=== PATIENT | female | born 1945 | race Caucasian/White ===

== ENCOUNTER 2018-07-07 20:38 | Emergency (ER) | payer OTHER ==
--- NOTE | 2018-07-07 21:08 | PDOC ---
History of Present Illness - General History Source: Patient Exam Limitations: No Limitations - History of Present Illness Initial Comments: 07/07/18 21:35 The patient is a 73 year old female, with a significant past medical history of high cholesterol and HTN who presents to the emergency department with R upper lip laceration. The patient notes she was walking up the steps when she missed a step and fell on her wooden floor. The patient denies any trauma to the head or loss of consciousness. The patients reports her immunizations are not up to date. The patient denies chest pain, shortness of breath, headache or dizziness. PAST MEDICAL HISTORY: no significant history PAST SURGICAL HISTORY: no significant history FAMILY HISTORY: no pertinent history SOCIAL HISTORY: Pt lives with family and is employed. MEDICATIONS: reviewed ALLERGIES: As per nursing notes <Nate Fisher - Last Filed: 07/07/18 21:53> - General History Source: Patient Exam Limitations: No Limitations - History of Present Illness Initial Comments: 07/07/18 21:19 A portion of this note was documented by scribe services under my direction. I have reviewed the details of the note, within reason, and agree with the documentation with the following case summary and management plan written by me. Patient treated in the ED. Nursing notes are reviewed and incorporated into the medical decision-making. Vital signs reviewed. Assessment plan: This is a 73-year-old female who fell hitting her lip. Patient did not pass out. Patient has a laceration of her lip that doesn't cross the vermilion border. Dr. Cedeno plastic surgery was called Patient will get a CAT scan 07/07/18 22:22 Procedure note laceration repair Laceration was cleaned with some peroxide and anesthetized with 1% lidocaine with no epinephrine. Laceration was closed with a total of 7 sutures of 6-0 Ethilon Bacitracin was applied patient tolerated well CAT scan report shows no acute pathology Patient discharged with head injury discharge instructions wound/suture instructions and will follow-up with her doctor or return in one week for suture removals <Monalisa Iniguez I - Last Filed: 07/07/18 22:25> - General Chief Complaint: Laceration Stated Complaint: LACERATION LOWER LIP Time Seen by Provider: 07/07/18 20:40 Past History <Nate Fisher - Last Filed: 07/07/18 21:53> <Monalisa Iniguez I - Last Filed: 07/07/18 22:25> - Past Medical History Allergies/Adverse Reactions: Allergies Allergy/AdvReac Type Severity Reaction Status Date / Time No Known Allergies Allergy Verified 07/07/18 21:19 Home Medications: Ambulatory Orders Amlodipine Besylate [Norvasc -] 5 mg PO DAILY 07/07/18 Review of Systems - Review of Systems Able to Perform ROS?: Yes Comments:: 07/07/18 21:35 General: No fevers or chills, no weakness, no weight loss HEENT: No change in vision. No sore throat,. No ear pain CardioVascular: No chest pain or shortness of breath Respiratory:No cough, or wheezing. Gastrointestinal: no nausea, vomiting, diarrhea or constipation, No rectal bleeding Genitourinary: No dysuria, hematuria, or frequency Musculoskeletal: No joint or muscle pain or swelling Neurologic: No headache, vertigo, dizziness or loss of consciousness Psychiatric: nor depression Skin: (+) R upper lip laceration Endocrine: no increased thirst or abnormal weight change Allergic: no skin or latex allergy All other systems reviewed and normal All Other Systems: Reviewed and Negative <Nate Fisher - Last Filed: 07/07/18 21:53> *Physical Exam - Vital Signs Last Vital Signs Temp Pulse Resp BP Pulse Ox 97.9 F 79 16 162/96 97 07/07/18 21:21 07/07/18 21:21 07/07/18 21:21 07/07/18 21:21 07/07/18 21:21 - Physical Exam Comments: 07/07/18 21:36 GENERAL: The patient is awake, alert, and fully oriented, in no acute distress. HEAD: Normal with no signs of trauma. EYES: Pupils equal, round and reactive to light, extraocular movements intact, sclera anicteric, conjunctiva clear. EXTREMITIES: Normal range of motion, no edema. NEUROLOGICAL: Normal speech, normal gait. PSYCH: Normal mood, normal affect. SKIN: (+) wedged shaped laceration approximately 2cm crossed R vermilion border <Lee Fisherhesrachael - Last Filed: 07/07/18 21:53> Moderate Sedation - Procedure Monitoring Vital Signs: Procedure Monitoring Vital Signs Temperature 97.9 F 07/07/18 21:21 Pulse Rate 79 07/07/18 21:21 Respiratory Rate 16 07/07/18 21:21 Blood Pressure 162/96 07/07/18 21:21 O2 Sat by Pulse Oximetry (%) 97 07/07/18 21:21 <Nate Fisher - Last Filed: 07/07/18 21:53> ED Treatment Course - Medications Given in the ED: ED Medications Discontinued Medications Generic Name Dose Route Start Last Admin Trade Name Janna PRN Reason Stop Dose Admin Diphtheria/Tetanus/Acell Pertussis 0.5 ml 07/07/18 21:18 07/07/18 21:29 Boostrix - IM 07/07/18 21:19 0.5 ml ONCE ONE Administration <Nate Fisher - Last Filed: 07/07/18 21:53> *DC/Admit/Observation/Transfer - Attestations Scribe Attestion: 07/07/18 21:36 Documentation prepared by Nate Fisher, acting as medical communication specialist for Monalisa Iniguez MD <Nate Fisher - Last Filed: 07/07/18 21:53> - Discharge Dispostion Decision to Admit order: No <Monalisa Iniguez I - Last Filed: 07/07/18 22:25> Diagnosis at time of Disposition: Lip laceration Qualifiers: Encounter type: initial encounter Qualified Code(s): S01.511A - Laceration without foreign body of lip, initial encounter - Discharge Dispostion Disposition: HOME Condition at time of disposition: Stable - Patient Instructions Printed Discharge Instructions: DI for Laceration Repair, DI for Closed Head Injury Additional Instructions: Return to the emergency department immediately with ANY new, persistent or worsening symptoms. Continue any medications as previously prescribed by your physician. You should follow up with your primary doctor as soon as possible regarding today's emergency department visit. . Please make sure your doctor reviews the results of your emergency evaluation. Thank you for coming to the Emergency Department today for your care. It was a pleasure to see you today. Please note that your evaluation is INCOMPLETE until you follow-up with your doctor. Clean the laceration once or twice a day with little peroxide and reapply bacitracin especially to the part below the lip where the skin was repaired Return in 6 or 7 days for removal of the sutures or you can see her primary care doctor for suture removal.
[2018-07-07] MEDS ORDERED: DIPHTH,PERTUSS(ACELL),TET 0.5 ML DISP.SYRIN IM ONE ×2 (21:18→21:26)
[2018-07-07 21:26] VITALS: BP 162/96; PULSE 79; TEMP 97.9; BMI 28.2
== END 2018-07-07 22:27 | disposition home or self-care (01) ==
LOC: FER 20:38
PROC: 0CQ0XZZ Repair Upper Lip, External Approach (ICD-10-PCS; principal; 2018-07-07)
PROC: 3E0234Z Introduction of Serum, Toxoid and Vaccine into Muscle, Percutaneous Approach (ICD-10-PCS; 2018-07-07)
DX: S01.511A Laceration without foreign body of lip, initial encounter (principal); S09.90XA Unspecified injury of head, initial encounter; W01.198A Fall on same level from slipping, tripping and stumbling with subsequent striking against other object, initial encounter; Y93.89 Activity, other specified; Y92.89 Other specified places as the place of occurrence of the external cause; E78.00 Pure hypercholesterolemia, unspecified; I10 Essential (primary) hypertension
CPT/HCPCS: 70450-TC; 90715; 99281-25